=== PATIENT | male | born 1950 | race Caucasian/White ===

== ENCOUNTER → 2016-06-11 | Outpatient (CLI) | payer MEDICARE, OTHER ==
[~2016-06-11] MED LIST: ASPIRIN 81M81 MG/TA2 PO; COLACE 100100 MG/CAP PO; GLUCOPHAGE500 MG/TAB PO; IBU-8800 MG PO; LIPITOR 40MG TA40 MG PO; NORCO 325 MG-51 TAB PO; OMEGA 31000 MG PO; PRINIVIL20 MG PO; PYRIDIUM200 M1 PO; UROCIT-K 5540 MG/TAB PO; UROXATRAL10 M1 PO; ZYRTEC 10MG10 MG PO
== END ==
LOC: COL.LAB 12:16
DX: Z01.812 Encounter for preprocedural laboratory examination (principal); M25.851 Other specified joint disorders, right hip

== ENCOUNTER 2016-06-12 13:26 | Outpatient (RCR) | payer MEDICARE, OTHER | END 2016-06-15 07:51 | LOC: WSC 13:26 → WSPT 13:30 → WSC 06-15 07:51 → WSPT 06-16 08:00 | DX: Z01.818 Encounter for other preprocedural examination (principal); M25.852 Other specified joint disorders, left hip | CPT/HCPCS: G8978-GP; G8979-GP ==

== ENCOUNTER 2016-07-27 08:00 | Outpatient (RCR) | payer MEDICARE, OTHER | END 2016-09-28 | disposition home or self-care (01) | LOC: WSPT | DX: Z47.89 Encounter for other orthopedic aftercare (principal); M25.852 Other specified joint disorders, left hip | CPT/HCPCS: G8978-GP; G8979-GP ==

== ENCOUNTER → 2018-04-18 | Outpatient (CLI) | payer MEDICARE, OTHER ==
[~2018-04-18] VITALS: Ht 177.8 cm; Wt 96.8 kg
[~2018-04-18] MED LIST changes: +DIABETA 2.5MG2.5 MG PO; +GLYB PO
[2018-04-18 08:08] VITALS: BP 153/90; PULSE 77
== END ==
LOC: COL.RAD 07:21
DX: J92.9 Pleural plaque without asbestos (principal); K82.8 Other specified diseases of gallbladder; R91.8 Other nonspecific abnormal finding of lung field
CPT/HCPCS: Q9967

== ENCOUNTER → 2019-12-21 | Outpatient (CLI) | payer MEDICARE, OTHER ==
[~2019-12-21] VITALS: Ht 177.8 cm; Wt 90.0 kg
[~2019-12-21] MED LIST changes: +ASPIRIN E.C. 8181 MG PO; +CRESTOR5 MG PO; +JARDIANCE10 PO; +OSCAL 500 TAB500 MG PO; +VITAMIN D31000 IU PO
[2019-12-21 12:19] VITALS: BP 151/88; PULSE 94
[2019-12-21 13:35] VITALS: BP 122/76; PULSE 87
--- NOTE | 2019-12-21 14:10 | NUR ---
Awaiting ride to come.
--- NOTE | 2019-12-21 14:20 | NUR ---
Pt out to car per wheelchair. Pt alert and oriented. Pt up and into car without assistance.
== END ==
LOC: COL.RAD 11:45
DX: M75.121 Complete rotator cuff tear or rupture of right shoulder, not specified as traumatic (principal); M67.814 Other specified disorders of tendon, left shoulder; M65.811 Other synovitis and tenosynovitis, right shoulder; W19.XXXA Unspecified fall, initial encounter
CPT/HCPCS: J2704; J3010

== ENCOUNTER 2023-11-05 13:33 | Inpatient (IN) | payer MEDICARE, OTHER ==
[~2023-11-05] VITALS: Ht 175.4 cm; Wt 89.0 kg
[2023-11-08] VITALS (14 sets, daily range): BP systolic 113–131; BP diastolic 66–76; PULSE 64–81; TEMP 95–98.5
[2023-11-08] MEDS ORDERED: LR 1,000 ML IV SCH (10:00)
[2023-11-08] MEDS ORDERED: GLUCOPHAGE XR500 M1 PO (11:49)
[2023-11-08] MEDS ORDERED: DIABETA 2.5MG2.5 MG PO (11:49)
[2023-11-08] MEDS ORDERED: TRULICITY0.75 MG/0. SQ (11:50)
[2023-11-08] MEDS ORDERED: CALCIUM 600-D 61 TAB PO (11:50)
[2023-11-08] MEDS ORDERED: VITAMIN C500 MG PO (11:50)
[2023-11-08] MEDS ORDERED: ASPIRIN E.C. 8181 MG PO (11:51)
[2023-11-08] MEDS ORDERED: PRINIVIL10 MG PO (11:52)
[2023-11-08] MEDS ORDERED: Vancomycin 1 GM VIAL IR ONE (12:59)
[2023-11-08] MEDS ORDERED: oxyCODONE 5 MG TAB PO PRN (14:15)
[2023-11-08] MEDS ORDERED: Magnes Hydrox (MOM) 80 MG/ML 30 ML CUP PO PRN (14:15)
[2023-11-08] MEDS ORDERED: HYDROmorphone 1 MG/1 ML SYRINGE [PACU/SDC ONLY] IV PRN (14:15)
[2023-11-08] MEDS ORDERED: Naloxone 0.4 MG/ML VIAL IV PRN (14:15)
[2023-11-08] MEDS ORDERED: fentaNYL 50 MCG/ML 1 ML SYRINGE/VIAL [PACU/SDC ONLY] IV PRN (14:15)
[2023-11-08] MEDS ORDERED: Ondansetron 4 MG/2 ML VIAL IV PRN (14:15)
[2023-11-08] MEDS ORDERED: HYDROmorphone 0.5 MG/0.5 ML SYRINGE IV PRN (14:15)
[2023-11-08] MEDS ORDERED: Ketorolac 15 MG/ML VIAL IV SCH (14:30)
[2023-11-08] MEDS ORDERED: HYDROmorphone 2 MG/1 ML VIAL ONE (14:33)
[2023-11-08] MEDS ORDERED: Ondansetron 4 MG/2 ML VIAL ONE (14:33)
[2023-11-08] MEDS ORDERED: Lidocaine PF 2% (20 MG/ML) 5 ML VIAL ONE (14:33)
[2023-11-08] MEDS ORDERED: fentaNYL 50 MCG/ML 2 ML VIAL ONE (14:33)
[2023-11-08] MEDS ORDERED: Glucagon 1 MG VIAL IM PRN (14:45)
[2023-11-08] MEDS ORDERED: Dextrose (Glucose) 15 GM (4 x 3.75 GM) Chewable TABLET PACK PO PRN (14:45)
[2023-11-08] MEDS ORDERED: Dextrose 50% Water 25 GM/50 ML SYRINGE IV PRN (14:45)
--- NOTE | 2023-11-08 15:21 | NUR ---
PT TO ROOM 350 PER BED WITH REPORT FROM DURGA MILL PLATFORM SUPERVISOR @ 1505. PT IS A/O X4, LUNGS CTA, BOWEL SOUNDS PRESENT. RIGHT KNEE IN OCCLUSIVE DRESSING WITH IMMOBILIZER ON. PT DENIES PAIN. PEDAL PULSES PALPABLE. TOES PINK AND WARM WITH GOOD CAP REFILL. IV TO LFA WITH NS UP. SCD BILATERALLY.
[2023-11-08 15:51] LABS: ALBUMIN 2.5 g/dL (3.4-4.8); BILIRUBIN,TOTAL 0.7 mg/dL (0.2-1.2); CALCIUM 9.3 mg/dL (8.4-10.2); CREATININE, serum 1.11 mg/dL (0.72-1.25); POTASSIUM 4.6 mEq/L (3.5-4.5)
[2023-11-08] MEDS ORDERED: Insulin Lispro (HumaLOG) SQ SCH ×2 (17:00)
--- NOTE | 2023-11-08 19:17 | NUR ---
report received from haleigh galvan. pt resting in bed watching tv. pt denies pain. post op vitals continue wnl. ivf continue to left wrist iv without issue. fall precautions in place. call light in reach. all needs met at this time.
[2023-11-08] MEDS ORDERED: Sennosides/Docusate 8.6-50 MG TAB PO SCH (21:00)
--- NOTE | 2023-11-08 21:05 | NUR ---
shift assessment complete, see documentation. pt tolerated hs meds well. pt reporting 9/10 right knee pain, scheduled toradol administered per orders. pt up to BSC with x1 assist, pt tolerated well. fall precautions in place. call light in reach. all needs met at this time.
[2023-11-08] MEDS ORDERED: cefTRIAXone 2 G in Water For Injection,Sterile 20 ML IV SCH (21:45)
[2023-11-09] VITALS (13 sets, daily range): BP systolic 125–152; BP diastolic 60–79; PULSE 65–75; TEMP 98–98.7
[2023-11-09 07:55] LABS: BASO % 0.3 % (0.0-2.0); EOS % 0.5 % (0.0-4.0); GRAN % 67.9 % (42.2-75.2); HEMOGLOBIN 11.3 g/dl (13.5-18.0); LYMPH # 1.7 K/mm3 (1.2-3.4); LYMPH % 23.4 % (20.0-51.0); MEAN CELL VOLUME 98 fl (80.0-100.0); MEAN CORPUSCULAR HEMOGLOBIN 34 pg (27-31); MEAN CORPUSCULAR HGB CONC 34 g/dl (33.0-37.0); MEAN PLATELET VOLUME 9.5 fl (7.4-10.4); MONO # 0.6 K/mm3 (0.1-0.6); MONO % 7.6 % (1.7-9.3); PLATELET COUNT 359 K/mm3 (130-400); RED BLOOD COUNT 3.36 M/mm3 (4.20-5.60); REDCELL DISTRIBUTION WIDTH-CV 11.3 % (11.5-14.5)
[2023-11-09 07:56] LABS: HEMATOCRIT 32.9 % (42.0-52.0)
--- NOTE | 2023-11-09 09:47 | NUR ---
PT UP INDEPENDENTLY IN ROOM. VOIDING, WORKED WITH THERAPY. PAIN CONTROLLED WITH PO MEDS. PT TO RETURN TO OR WED FOR FURTHER WASH OUT. DR. GÓMEZ ROUNDED ON PT THIS AM.
--- NOTE | 2023-11-09 10:31 | NUR ---
Director met with patient to discuss discharge planning. Patient lives alone in [place] and sees Dr. Grover for primary care. Patient gets his medications from [facility]. Patient is independent with ADLS and does not normally use any DME, besides crutches for recovery which he has at bedside. Patient believes he has DPOA-HC designating his daughter, Mildred (ph#[phone]) but is not sure where it would be located. Patient plans to return home at time of discharge. Discharge Plan: Home
[2023-11-09 13:10] LABS: HEMOGLOBIN 12.2 g/dl (13.5-18.0)
[2023-11-09 13:14] LABS: HEMATOCRIT 35.7 % (42.0-52.0)
[2023-11-10] VITALS (12 sets, daily range): BP systolic 117–154; BP diastolic 63–84; PULSE 62–84; TEMP 97.7–98.6
--- NOTE | 2023-11-10 02:01 | NUR ---
Shift assessment completed- see documentation. Pt is alert and oriented. Pain is controlled with current regimen. Pt has a knee immobilizer brace in place and RLE elevated when in bed. PM medications administered as ordered. Pt denies other needs at this time. Call light within reach and fall precautions in place.
[2023-11-10] MEDS ORDERED: NS 1,000 ML IV SCH (08:00)
[2023-11-10 08:14] LABS: BASO % 0.3 % (0.0-2.0); EOS # 0.1 K/mm3 (0.0-0.7); EOS % 1.1 % (0.0-4.0); GRAN # 4.5 K/mm3 (1.4-6.5); GRAN % 67.1 % (42.2-75.2); HEMOGLOBIN 11.2 g/dl (13.5-18.0); LYMPH # 1.6 K/mm3 (1.2-3.4); LYMPH % 23.6 % (20.0-51.0); MEAN CELL VOLUME 97 fl (80.0-100.0); MEAN CORPUSCULAR HEMOGLOBIN 34 pg (27-31); MEAN CORPUSCULAR HGB CONC 35 g/dl (33.0-37.0); MEAN PLATELET VOLUME 9.3 fl (7.4-10.4); MONO # 0.5 K/mm3 (0.1-0.6); MONO % 7.6 % (1.7-9.3); PLATELET COUNT 367 K/mm3 (130-400); REDCELL DISTRIBUTION WIDTH-CV 11.2 % (11.5-14.5)
[2023-11-10 08:18] LABS: HEMATOCRIT 32.1 % (42.0-52.0)
--- NOTE | 2023-11-10 08:25 | NUR ---
Pt. sitting up in bed. Pt. is a&OX3, assessment complete. INT to lt. forearm patent. Dressing to Rt. knee CDI. Dr. Lema in to see the pt. at this time. Plan for OR today. Pt. voices understanding. Pt. denies pain or other needs, call light within reach.
[2023-11-10] MEDS ORDERED: fentaNYL 50 MCG/ML 1 ML SYRINGE/VIAL [PACU/SDC ONLY] IV PRN (11:30)
[2023-11-10] MEDS ORDERED: HYDROmorphone 1 MG/1 ML SYRINGE [PACU/SDC ONLY] IV PRN (11:30)
[2023-11-10] MEDS ORDERED: hydrALAZINE 20 MG/ML 1 ML VIAL IV PRN (11:30)
[2023-11-10] MEDS ORDERED: Meperidine 50 MG/ML 1 ML VIAL IV PRN (11:30)
[2023-11-10] MEDS ORDERED: Ondansetron 4 MG/2 ML VIAL IV PRN (11:30)
--- NOTE | 2023-11-10 14:00 | NUR ---
Pt. down to OR at this time.
[2023-11-10] MEDS ORDERED: Midazolam 2 MG/2 ML VIAL ONE (14:30)
[2023-11-10] MEDS ORDERED: Lidocaine PF 2% (20 MG/ML) 5 ML VIAL ONE (14:30)
[2023-11-10] MEDS ORDERED: fentaNYL 50 MCG/ML 2 ML VIAL ONE ×3 (14:30→15:40)
[2023-11-10] MEDS ORDERED: Rocuronium 50 MG/5 ML Multi-Dose VIAL ONE (14:39)
[2023-11-10] MEDS ORDERED: Ondansetron 4 MG/2 ML VIAL ONE (15:02)
[2023-11-10] MEDS ORDERED: Vancomycin 1 GM VIAL IL ONE (15:35)
--- NOTE | 2023-11-10 16:55 | NUR ---
Pt. arrived to the floor from PACU. Pt. assessment WNL. Dressing to rt. knee CDI with prince wrap and immobilizer brace on. Pt. denies pain at this time. Call light within reach.
--- NOTE | 2023-11-10 19:15 | NUR ---
SHIFT ASSESSMENT COMPLETE. VSS. PATIENT SITTING WITH ON BENCH IN ROOM. PATIENT AMBULTED SBA TO BED. ALL NIGHT MEDS GIVEN ORDERED. PATIENT STATES PAIN 6/10. PAIN MEDS GIVEN ORDERED. PATIET HAS NO OTHER REQUEST AT THIS TIME. CALL LIGHT IN REACH.
--- NOTE | 2023-11-10 23:25 | NUR ---
VITALS STABLE REMOVED POST OP VITALS
[2023-11-11] VITALS (10 sets, daily range): BP systolic 109–129; BP diastolic 67–71; PULSE 69–74; TEMP 98–98.7
--- NOTE | 2023-11-11 08:28 | NUR ---
PT RESTING IN BED AM LABS DRAWN FROM PICC. AM MEDS GIVEN ORDERED. PLAN ON DISCHARGE LATER TODAY.
[2023-11-11 08:58] LABS: BASO % 0.3 % (0.0-2.0); EOS # 0.1 K/mm3 (0.0-0.7); EOS % 1.1 % (0.0-4.0); GRAN % 64.6 % (42.2-75.2); HEMOGLOBIN 10.8 g/dl (13.5-18.0); LYMPH # 1.6 K/mm3 (1.2-3.4); LYMPH % 26.4 % (20.0-51.0); MEAN CELL VOLUME 99 fl (80.0-100.0); MEAN CORPUSCULAR HEMOGLOBIN 33 pg (27-31); MEAN CORPUSCULAR HGB CONC 34 g/dl (33.0-37.0); MEAN PLATELET VOLUME 9.4 fl (7.4-10.4); MONO # 0.5 K/mm3 (0.1-0.6); MONO % 7.3 % (1.7-9.3); PLATELET COUNT 353 K/mm3 (130-400); RED BLOOD COUNT 3.26 M/mm3 (4.20-5.60); REDCELL DISTRIBUTION WIDTH-CV 11.3 % (11.5-14.5)
[2023-11-11 09:03] LABS: HEMATOCRIT 32.2 % (42.0-52.0)
[2023-11-11] MEDS ORDERED: rifAMPin 300 MG CAPSULE PO SCH (10:08)
--- NOTE | 2023-11-11 14:40 | NUR ---
barrow worker was notified patient will need IV antibiotics. Final recommendation from ID is pending. ANDRES met with patient and family member to discuss dischrge planning. Patient reports he would [facility] and he would be okay with going to the [facility] twice a day for this anitbiotics as he was worried about messing them up at home. Patient reports he would like OP PT at [facility] in [place] off [facility]. SW reviewed the important message from Medicare. Patient understood and signed the form. No further questions. SW was notified patient will have one oral antibiotic and Vancomycin twice a day via IV. ANDRES contacted [facility] and confirmed they are able to see patient every day at 7 am and 6 pm. ANDRES faxed necessary information to [facility]. ANDRES was notified the [facility] needs an updated prescription with the start and end date and needs the orders to say "pharmacy to trough" and "PICC care to be completed by [facility] per protocol." ANDRES notified patient's nurse. ANDERS faxed updated information to [facility]. Patient will have his second dose of Vancomycin today at 5 pm then discharge, next dose at [facility] at 7 am and second dose at 6 pm. ANDRES notified patient of this information. Patient is aware of this. ANDRES Student faxed referral to [facility] for OP PT. ANDRES contacted [facility] whom reports they will contact patient to schedule his first appointment. Discharge plan: Home with IV antibiotics and OP PT
--- NOTE | 2023-11-11 18:25 | NUR ---
DISCHARGE INSTRUCTIONS REVIWED WITH PT AND FRIEND. QUESTIONS SOLICITED AND ANSWERED. CALLED IN ABX TO [facility] PER . PT DC WTIH PICC LINE WILL RETURN TO [facility] FOR [facility]Y.
[2023-11-11] MEDS ORDERED: Celecoxib 200 MG CAP PO SCH (21:00)
[2023-11-29] MEDS ORDERED: RIFADIN300 MG (01:45)
== END 2023-11-11 18:00 | disposition home or self-care (01) | DRG 487 ==
LOC: SURG 11-08 11:33 → INPTSU 11-08 11:33 → SURG 11-08 12:30
PROVIDERS: ADMIT Orthopaedic Surgery Sports Medicine
PROC: 0SUV09Z Supplement Right Knee Joint, Tibial Surface with Liner, Open Approach (ICD-10-PCS; 2023-11-08)
PROC: 02HV33Z Insertion of Infusion Device into Superior Vena Cava, Percutaneous Approach (ICD-10-PCS; 2023-11-08)
PROC: 0SPC09Z Removal of Liner from Right Knee Joint, Open Approach (ICD-10-PCS; principal; 2023-11-08 12:30)
DX: M00.9 Pyogenic arthritis, unspecified (principal)
CPT/HCPCS: A6197; A9284; C1713; C1751; C1776; J0665; J0690; J0696; J1170; J1815; J1885; J2250; J2405; J2704; J3010; J3370; J7050; J7120; Q3014

== ENCOUNTER 2023-11-28 22:35 | Inpatient (IN) | payer MEDICARE, OTHER ==
[~2023-11-28] VITALS: Ht 175.3 cm; Wt 85.5 kg
[~2023-11-28 22:35] MED LIST changes: +CALCIUM 600-D 61 TAB PO; +GLUCOPHAGE XR500 M1 PO; +PRINIVIL10 MG PO; +TRULICITY0.75 MG/0. SQ; +VITAMIN C500 MG PO
[2023-11-28] MEDS ORDERED: NS 1,000 ML IV ONE (23:15)
[2023-11-28 23:36] LABS: EOS # 0.1 K/mm3 (0.0-0.7); EOS % 4.2 % (0.0-4.0); GRAN # 1.4 K/mm3 (1.4-6.5); GRAN % 66.6 % (42.2-75.2); HEMOGLOBIN 10.2 g/dl (13.5-18.0); LYMPH # 0.4 K/mm3 (1.2-3.4); LYMPH % 17.4 % (20.0-51.0); MEAN CELL VOLUME 98 fl (80.0-100.0); MEAN CORPUSCULAR HEMOGLOBIN 33 pg (27-31); MEAN CORPUSCULAR HGB CONC 34 g/dl (33.0-37.0); MEAN PLATELET VOLUME 10.3 fl (7.4-10.4); MONO # 0.2 K/mm3 (0.1-0.6); MONO % 11.3 % (1.7-9.3); PLATELET COUNT 135 K/mm3 (130-400); REDCELL DISTRIBUTION WIDTH-CV 12.1 % (11.5-14.5)
[2023-11-28 23:39] LABS: HEMATOCRIT 30.3 % (42.0-52.0)
[2023-11-28 23:53] LABS: ALBUMIN 2.9 g/dL (3.4-4.8); BILIRUBIN,TOTAL 0.9 mg/dL (0.2-1.2); CALCIUM 8.4 mg/dL (8.4-10.2); CREATININE, serum 1.01 mg/dL (0.72-1.25); POTASSIUM 3.4 mEq/L (3.5-4.5); TOTAL PROTEIN 6.7 g/dl (6.2-8.1)
[2023-11-29] VITALS (9 sets, daily range): BP systolic 108–156; BP diastolic 65–80; PULSE 68–87; TEMP 97.5–99.5
[2023-11-29] MEDS ORDERED: Acetaminophen 500 MG TAB PO ONE (00:30)
[2023-11-29] MEDS ORDERED: NS 1,000 ML IV SCH (00:30)
[2023-11-29] MEDS ORDERED: Acetaminophen 325 MG TAB PO PRN (01:30)
[2023-11-29] MEDS ORDERED: *Potassium Replacement Protocol MC SCH (01:30)
[2023-11-29] MEDS ORDERED: Ondansetron 4 MG/2 ML VIAL IV PRN (01:30)
[2023-11-29] MEDS ORDERED: Ibuprofen 200 MG TAB PO PRN (01:30)
[2023-11-29] MEDS ORDERED: RIFADIN300 MG PO (01:45)
--- NOTE | 2023-11-29 01:55 | NUR ---
PT ARRIVED TO UNIT BY WHEELCHAIR FROM ED. ALERT AND ORIENTED, VSS, AFEBRILE. AMBULATED TO BED FROM WHEELCHAIR INDEPENDENTLY. ACCOMPANIED BY FRIEND. PT IS A . ASSESSED, DENIES PAIN AT THIS TIME. R UPPER ARM PICC PATENT PUSHES AND PULLS WELL. R KNEE WARM TO TOUCH COVERED BY SURGICAL DRESSING. ORIENTED TO ROOM AND ALL QUESTIONS ANSWERED. CALL LIGHT WITHIN REACH.
[2023-11-29] MEDS ORDERED: Dextrose (Glucose) 15 GM (4 x 3.75 GM) Chewable TABLET PACK PO PRN (02:15)
[2023-11-29] MEDS ORDERED: Dextrose 50% Water 25 GM/50 ML SYRINGE IV PRN (02:15)
[2023-11-29] MEDS ORDERED: Glucagon 1 MG VIAL IM PRN (02:15)
--- NOTE | 2023-11-29 05:58 | NUR ---
Alondra BETTS NOTIFED OF ORTHO CONSULT.
[2023-11-29] MEDS ORDERED: Insulin Lispro (HumaLOG) SQ SCH ×2 (06:00→12:00)
--- NOTE | 2023-11-29 06:40 | NUR ---
PT RESTING IN BED. PT IS ON RA. PT IS SR ON TELE. PT IS AXOX4. PT HAS CALL LIGHT AND INSTRUCTED TO CALL WITH ALL NEEDS,
[2023-11-29] MEDS ORDERED: Potassium Chloride 100 ML IV SCH (07:30)
--- NOTE | 2023-11-29 10:00 | NUR ---
PT HAD BLOOD CULTURES DRAWN 11/26 IN [facility], LAB STATES NO GROWTH. SPOKE WITH NOEMY ALVAREZ REGARDING BC ORDER FROM THIS AM. WILL CANCEL THEM.
[2023-11-29 10:16] LABS: URINE APPEARANCE CLEAR (CLEAR/HAZY); URINE BLOOD NEGATIVE (NEGATIVE); URINE COLOR Dark Yellow (YELLOW); URINE GLUCOSE NEGATIVE (NEGATIVE); URINE KETONE NEGATIVE (NEGATIVE); URINE NITRATE NEGATIVE (NEGATIVE); URINE PROTEIN(semi-quant) TRACE (NEGATIVE)
[2023-11-29 11:07] LABS: COLLECTION METHOD CLEAN CATCH
--- NOTE | 2023-11-29 12:03 | NUR ---
Data: Patient and accepted spiritual care visit offered during Professional Development Director rounds. They attend [facility]. They are part of the ministry team that provides the eucharist to Patients in this hospital on Sundays and Tuesdays. Assessment: No immediate spiritual care needs noted at this time. Plan of Care: Professional Development Director provided a rosary for each of them. They thanked Professional Development Director for the visit. Chaplains will remain available as needed/requested while Patient is admitted to this hospital.
--- NOTE | 2023-11-29 15:12 | NUR ---
lithographic general worker met with patient to discuss discharge planning. Michael lives alone in [place]. Mildred, daughter, P# [phone] is patient's next of kin and DPOA-HC. PCP is Dr. Grover, pharmacy is [facility]. Insurance is Medicare A and B and [employer]. No DME and reports to be independent with ADLS. Patient is able to transport himself to appointments and had been coming to the hospital twice a day for his antibiotics since his last hospital stay earlier this month. Patient wants to return home at time of discharge. DIscharge plan: Home
[2023-11-29] MEDS ORDERED: ceFAZolin 2 G in Water For Injection,Sterile 20 ML IV SCH (18:30)
[2023-11-29] MEDS ORDERED: Vancomycin 1.25 GM,Special Dose/Pharmacy Prepared 1.25 GM in NS 250 ML IV SCH (19:00)
--- NOTE | 2023-11-29 20:49 | NUR ---
Patient assessed at this time,see shift assessment, denies pain or discomfort, noted no drainage to the right knee, denies further needs, call light and personal items within reach, will continue to monitor.
[2023-11-29] MEDS ORDERED: rifAMPin 300 MG CAPSULE PO SCH (21:00)
--- NOTE | 2023-11-29 22:03 | NUR ---
Spoken to Dr. Mills and made her aware that patient had 2 episodes of bloody diarrhea this evening, received an order for stool occult and c-diff.
[2023-11-30] VITALS (12 sets, daily range): BP systolic 114–142; BP diastolic 64–75; PULSE 61–86; TEMP 98.4–99.8
[2023-11-30 06:28] LABS: BASO % 0.5 % (0.0-2.0); EOS # 0.1 K/mm3 (0.0-0.7); EOS % 3.3 % (0.0-4.0); GRAN # 0.9 K/mm3 (1.4-6.5); GRAN % 40.5 % (42.2-75.2); HEMATOCRIT 29.7 % (42.0-52.0); HEMOGLOBIN 10.4 g/dl (13.5-18.0); LYMPH # 0.9 K/mm3 (1.2-3.4); LYMPH % 42.5 % (20.0-51.0); MEAN CELL VOLUME 97 fl (80.0-100.0); MEAN CORPUSCULAR HEMOGLOBIN 34 pg (27-31); MEAN CORPUSCULAR HGB CONC 35 g/dl (33.0-37.0); MEAN PLATELET VOLUME 10.1 fl (7.4-10.4); MONO # 0.3 K/mm3 (0.1-0.6); MONO % 12.7 % (1.7-9.3); PLATELET COUNT 130 K/mm3 (130-400); RED BLOOD COUNT 3.07 M/mm3 (4.20-5.60); REDCELL DISTRIBUTION WIDTH-CV 12.1 % (11.5-14.5)
[2023-11-30 07:01] LABS: ALBUMIN 2.8 g/dL (3.4-4.8); CALCIUM 8.1 mg/dL (8.4-10.2); CREATININE, serum 0.87 mg/dL (0.72-1.25); MAGNESIUM 1.6 mg/dL (1.6-2.6); PHOSPHOROUS 2.2 mg/dL (2.3-4.7); POTASSIUM 3.2 mEq/L (3.5-4.5)
[2023-11-30] MEDS ORDERED: Magnesium Sulfate 4% 50 ML IV ONE (08:00)
[2023-11-30] MEDS ORDERED: Potassium Bicarbonate/Citrate 20 MEQ Effervescent TAB PO SCH (08:00)
--- NOTE | 2023-11-30 08:00 | NUR ---
PT AWAKE AND GETTING DRESSED UPON ENTERING ROOM. SCHEDULED MEDS GIVEN PER eMAR. DENIES PAIN, SOA, OR FEELING FLUSHED. ALL NEEDS MET AT THIS TIME. CALL LIGHT WITHIN REACH.
--- NOTE | 2023-11-30 08:06 | NUR ---
[id number] WITH REGARDING K AND MAG LEVELS. ORDER RECEIVED TO GIVE IV MAG THEN REPLACE K WITH PROTOCOL. 0800-SPOKE WITH LAB REGARDING STOOL SAMPLES. ORDERS NOT POPULATING FOR US TO COLLECT ON OUR SIDE. LABS REORDERED. LAB STILL UNABLE TO VIEW. SPOKE WITH LAB AGAIN AND THEY STATED THE WILL PLACED ORDERS AND RUN TESTS.
--- NOTE | 2023-11-30 14:43 | NUR ---
field crop i farmworker reviewed infectious disease consult which recommends switching patient from vanc to ancef. SW spoke with patient's nurse regarding the antibiotic and how often the ancef would be upon discharge. Patient's nurse reported the ancef is currently three times a day but they are hoping it can be switched to oral upon discharge. ANDRES explained patient is currently getting outpatient IV with [facility], so if she hears back that the patient will discharge with IV antibiotics to notify social work to prep for discharge. Patient's nurse understood. Discharge plan: Home with potential continued IV antibiotics
[2023-11-30 16:00] LABS: CLOSTRIDIUM DIFF A/B NEG
--- NOTE | 2023-11-30 16:07 | NUR ---
Spoke with regarding no code status order in chart and the stool occult was negative. She states she will place orders.
--- NOTE | 2023-11-30 21:45 | NUR ---
Patient resting in bed. Denies any pain or needs at this time. Assessment complete. PICC in right upper arm flushes easily with good blood return. Call light and personal items in reach. Bed in low position.
[2023-12-01] VITALS (9 sets, daily range): BP systolic 106–124; BP diastolic 65–73; PULSE 62–84; TEMP 97.7–98.4
[2023-12-01 06:34] LABS: BASO % 0.3 % (0.0-2.0); EOS # 0.1 K/mm3 (0.0-0.7); GRAN % 56.2 % (42.2-75.2); HEMATOCRIT 30.4 % (42.0-52.0); HEMOGLOBIN 10.6 g/dl (13.5-18.0); LYMPH # 1.1 K/mm3 (1.2-3.4); LYMPH % 29.8 % (20.0-51.0); MEAN CELL VOLUME 97 fl (80.0-100.0); MEAN CORPUSCULAR HEMOGLOBIN 34 pg (27-31); MEAN CORPUSCULAR HGB CONC 35 g/dl (33.0-37.0); MEAN PLATELET VOLUME 10.8 fl (7.4-10.4); MONO # 0.3 K/mm3 (0.1-0.6); MONO % 9.4 % (1.7-9.3); PLATELET COUNT 148 K/mm3 (130-400); RED BLOOD COUNT 3.15 M/mm3 (4.20-5.60); REDCELL DISTRIBUTION WIDTH-CV 12.3 % (11.5-14.5)
[2023-12-01 06:45] LABS: ALBUMIN 2.8 g/dL (3.4-4.8); CALCIUM 8.6 mg/dL (8.4-10.2); CREATININE, serum 0.82 mg/dL (0.72-1.25); MAGNESIUM 1.8 mg/dL (1.6-2.6); PHOSPHOROUS 2.8 mg/dL (2.3-4.7); POTASSIUM 3.4 mEq/L (3.5-4.5)
[2023-12-01] MEDS ORDERED: Potassium Bicarbonate/Citrate 20 MEQ Effervescent TAB PO SCH (10:00)
--- NOTE | 2023-12-01 10:15 | NUR ---
PT SITTING ON BENCH UPON ENTERING. ASSESSMENT DONE, MEDS GIVEN. PRN TYLENOL GIVEN FOR KNEE PAIN. PT DENIES NEEDS. SINGLE LUMEN PICC TO RIGHT UPPER ARM CLEAN DRY AND INTACT, DRESSING CHANGED BY [facility]IVS TODAY. PT DENIES NEEDS. CALL LIGHT IN REACH
[2023-12-01] MEDS ORDERED: CEFAZOLIN SODIUM2 GM IV (11:56)
--- NOTE | 2023-12-01 12:20 | NUR ---
SINGLE LUMEN PICC CAP CHANGED. FLUSHED WELL WITH BLOOD RETURN
--- NOTE | 2023-12-01 14:46 | NUR ---
horse stud worker attended clinical rounding and was informed pt will need IV Antibiotics x2 daily for three weeks. ANDRES met with pt to present Medicare.gov list of agencies or information on [facility]. At first, pt informed ANDRES and Dr. Leeann Gray that he has a neighbor who is a nurse and can adminster the medications. advised this is three times a day and in the late evening. He reports to live home alone. He wanted to get his dressing change at [facility], but then was open to Home Health. Pt appeared hesitant or unsure about the process for IV Antibiotics at home. ANDRES spoke with Lay in [facility] who states they can accomodate pt at 630am, 230pm, and he would go to ER at 1030pm. ANDRES called pt who was agreeable to this. ANDRES informed him per [facility], he has to be an outpatient and cannot be inpatient in the hospital. ANDRES clarified with DANIELE Flynn who reports pt has to be discharged by midnight to no longer be an inpatient. Pt verbalized understanding of this. ANDRES spoke with instrument lens grinder apprentice Megan and discussed the above. She advised SW they can give the medication earlier tonight, around 9pm then pt can discharge. SW informed pt of this as well who was agreeable. ANDRES spoke with Dr. Leeann Gray who was agreeable to this plan. ANDRES spoke with DAWN Paulino who reports pt had a visitor arriving to pick him up and they both expressed frustration regarding x3 daily medications. ANDRES called pt to discuss any concerns and informed him that either way it is a taxing process to adminster to oneself or to go outpatient. He verbalized agreement with this and said, "with all the hassle I will just go to [facility]." ANDRES again made sure he was agreeable to the plan and how they will also do labs and dressing changes. No further questions. ANDRES faxed discharge orders, script, and demographics to [facility]. ANDRES spoke with DAWN Chun who confirms they received this. Discharge Plan: home with outpatient ABOX
--- NOTE | 2023-12-01 17:19 | NUR ---
TELE REMOVED AND PT DRESSED IN PERSONAL CLOTHES. DISCHARGE INSTRUCTIONS GIVEN ABOUT FOLLOW UP APPOINTMENTS, LABS, AND [facility]. PT VERBALIZED UNDERSTANDING. PT WAITING FOR LAST DOSE OF ANCEF BEFORE DISCHARGE
== END 2023-12-01 18:40 | disposition home or self-care (01) | DRG 864 ==
LOC: COL.ER 22:35 → MEDICAL 11-29 00:24
PROVIDERS: Hospitalist; Physician Assistant; ADMIT Internal Medicine
DX: R50.9 Fever, unspecified (principal); D72.819 Decreased white blood cell count, unspecified; E87.6 Hypokalemia; E83.42 Hypomagnesemia; E11.9 Type 2 diabetes mellitus without complications; Z79.4 Long term (current) use of insulin; I10 Essential (primary) hypertension
CPT/HCPCS: J0690; J1815; J2543; J3370; J3475; J3480; J7030; J7050; Q3014